=== PATIENT | male | born 1990 | race African-American/Black ===

== ENCOUNTER 2025-01-31 01:17 | Emergency (ER) | payer OTHER ==
[~2025-01-31] VITALS: Ht 190.5 cm; Wt 84.0 kg
[2025-01-31 01:47] VITALS: BP 128/84; PULSE 105; RESP 20; TEMP 36.8; O2SAT 96
== END 2025-01-31 02:46 ==
LOC: ER 01:17
DX: Z02.89 Encounter for other administrative examinations (principal); F10.239 Alcohol dependence with withdrawal, unspecified; Y90.9 Presence of alcohol in blood, level not specified
CPT/HCPCS: 36415; 80320; 99283; G0480